=== PATIENT | female | born 1985 | race Caucasian/White ===

== ENCOUNTER → 2022-08-29 | Outpatient (CLI) | payer OTHER ==
[2022-08-29 15:06] VITALS: BP 134/84; PULSE 106; RESP 16; TEMP 98.2
--- NOTE | 2022-08-29 16:05 | P.HPBAR ---
Bariatric H&P - History & Physicial H&P Date: 08/29/22 History & Physicial: Visit/CC: Initial Visit Patient initial contact: Initial weight: 106.141 kg Initial weight in pounds: 234.00 Height: 5 ft 4.5 in Initial BMI: 39.5 Last weight: Current weight: Current weight in pounds: Current BMI: [place] body weight (based on NIH guidelines): 55.565 kg Excess body weight loss: The patient is a 36 year-old F who presents for Bariatric Assessment. Patient comes in today to discuss weight loss surgical options. Patient states she has suffered with her weight for many years. She has tried Adipex on a few occasions without any sustained weight loss. Patient does not have any signifi cant health issues. She did have a workup for rheumatoid arthritis recently that was normal. Denies GERD. No history of DVT or dysphagia. Patient does vape on rare basis. BMI today 39.5. Previous surgeries include appendectomy C- section and years surgeries. Review of Systems The patient denies any acute changes in vision or hearing, no dysphagia or odynophagia, no chest pain or shortness of breath, no dysuria or hematuria, no headache, no runny nose, no rectal bleeding or melena, no unexplained weight loss Past Medical History Smoking Status: Unknown if ever smoked Surgical - Exam Vital Signs Temp Pulse Resp BP 98.2 F 106 H 16 134/84 08/29/22 15:03 08/29/22 15:03 08/29/22 15:03 08/29/22 15:03 Physical exam: General: Well-developed, well-nourished HEENT: Normocephalic, sclerae nonicteric Abdomen: Nontender, nondistended Extremities: No edema Neuro: Alert and oriented Bariatric Assessment & Plan (1) Obesity (BMI 35.0-39.9 without comorbidity) Narrative/Plan: 36-year-old female with severe obesity. Surgical options discussed in detail. When patient presented initially she stated that she was here to discuss gastric bypass. After discussing the surgical options patient states she was unclear on which surgeries were which. She now states she is interested in the sleeve gastrectomy. Patient understands the importance of smoking cessation prior to surgery. We'll proceed with upper endoscopy preoperatively. Begin supervised weight loss. Patient will return to the office after upper endoscopy to go over those results and to review medical clearance letter and psychiatric evaluation. The risks of bleeding, infection, stenosis, stricture, leak, abscess, fistula formation, peritonitis, poor weight loss, reflux, vomiting, conversion to an open procedure, aborting sleeve gastrectomy, PR, PE, DVT, and were discussed. The patient understands and wishes to proceed. Status: Acute Bariatric Checklist Checklist: Plan: Checklist: EGD: 1. Hiatal hernia: 2. H. Pylori: HgbA1c: Vitamin D: Smoking: Primary care physician referral: [facility] Psychiatry clearance: Cardiology clearance: Sleep study: Diet journal: VTE risk score: VTE risk level: Rehab needs at discharge:
[2022-08-29 22:32] LABS: HCT 36.9 % (37.2-46.3); HGB 12.4 g/dL (12.0-15.0); MCH 31.8 pg (27.0-32.0); MCHC 33.6 g/dL (32.0-37.0); MCV 94.6 fL (80.0-97.0); Mean Platelet Volume 10.5 fL (9.5-12.2); NRBC Per 100 WBC 0 /100 WBCS (0.0-0.0); Platelet Count 254 X 10*3/uL (140-440); RDW 12.9 % (11.5-14.5); WBC 8.13 X 10*3/uL (4.50-10.00)
[2022-08-29 23:30] LABS: African American GFR (CKD) 142.4 (60.0-200.0); Albumin 3.8 g/dL (3.8-4.9); Albumin/Globulin Ratio 1.41 (1.60-3.17); Anion Gap 9.9 mmol/L (10.00-18.00); BUN/Creat Ratio 24.82 Ratio (12.00-20.00); Blood Urea Nitrogen 13.5 mg/dL (9.0-27.0); Calcium 8.8 mg/dL (8.7-10.3); Carbon Dioxide 23.5 mmol/L (20.0-27.5); Globulin 2.7 g/dL (1.6-3.3); Non-African American GFR(CKD) 122.8 (60.0-200.0); Potassium 3.7 mmol/L (3.5-5.5); Total Bilirubin 0.3 mg/dL (0.30-1.20); Total Protein 6.5 g/dL (6.2-8.2)
== END ==
LOC: BARWHC3 14:19
PROVIDERS: ATTEND Surgery
DX: E66.01 Morbid (severe) obesity due to excess calories (principal)
CPT/HCPCS: 84425; 80053; 82607; 82746; 83540; 85027; 82306; 83036; 93005; G0480; G0463; 80323; 99202